=== PATIENT | male | born 2000 | race Hispanic/Latino ===

== ENCOUNTER 2020-06-26 10:29 | Emergency (ER) | payer SELFPAY ==
[2020-06-26] MEDS ORDERED: Azithromycin 250 MG TAB ONE (11:07)
[2020-06-26] MEDS ORDERED: Ketorolac Tromethamine 30 MG/ML VIAL ONE (11:07)
[2020-06-26] MEDS ORDERED: cefTRIAXone\\ROCEPHIN 250 MG VIAL ONE (11:07)
[2020-06-26] MEDS ORDERED: Lidocaine 1% PF 5 ML VIAL ONE (11:09)
--- NOTE | 2020-06-26 11:44 | ULT ---
Exam: Testicular ultrasound HISTORY: Pain and swelling. Symptoms right-sided. COMPARISON: None TECHNIQUE: Sagittal and transverse imaging of the left and right hemiscrotum are performed. Testicula r Doppler is performed with grayscale, color-flow, Doppler imaging and spectral waveform analysis. FINDINGS: Right hemiscrotum: Testicle: Small anechoic focus within the testicle measuring 0.4 x 0.4 x 0.4 cm may represent a small intratesticular cyst. No solid masses. Right testicle measurements: 4.3 x 2.4 x 3.1 Right epididymis: Normal echotexture. Right epididymis measurements: 1.1 x 1.7 cm Hydrocele: Small Left hemiscrotum: Left testicle: Homogeneous echotexture. No intratesticular masses. Left testicle measurements: 4.5 x 2.4 x 2.5 cm Left epididymis: Normal echotexture. 0.3 cm cyst. Left epididymis measurements:1.0 x 0.9 cm Hydrocele: None Testicular Doppler: There is symmetric vascular flow to left and right testicle. Asymmetric increased flow in the right epididymis. IMPRESSION: 1. Symmetric vascular flow to the left and right testicle. 2. Increased vascular flow to the right epididymis. Correlate for epididymitis. 3. Nonspecific right intratesticular cyst.
[2020-06-26 12:31] LABS: Bilirubin Negative (Negative); Blood, Urine Trace (Negative); Clarity Turbid (Clear); Glucose, Urine (Dipstick) Normal (Negative); Ketone, Urine Negative (Negative); Leukocyte 500 Leu/uL (Negative); Nitrite Negative (Negative); Protein, Urine (Dipstick) Negative (Neg-Trace); Specific Gravity, Urine 1.009 (1.002-1.036); Squamous Epithelial None Seen HPF (0-3); Urobilinogen Normal mg/dL (Less than 2); WBC/HPF Greater than 50 HPF (0-3)
[2020-06-26 12:32] LABS: Bacteria/HPF 1+ HPF (None Seen)
[2020-06-28 17:54] LABS: Chlam.trachomatis by PCR,Urine DETECTED (NotDetected)
== END 2020-06-26 13:35 | disposition home or self-care (01) ==
LOC: ERS 10:29
DX: N45.1 Epididymitis (principal)
CPT/HCPCS: 76870; 81003; 81015; 87086; 87491; 87591; 93976; 96372; J0696; J1885